=== PATIENT | male | born 1945 | race Caucasian/White ===

== ENCOUNTER 2018-08-20 12:09 | Emergency (ER) | payer OTHER ==
[2018-08-20] MEDS ORDERED: Sodium Chloride 0.9% 10 ML Syringe FLUSH PRN (12:43)
[2018-08-20] MEDS ORDERED: Ondansetron 4 MG/2 ML SDV IVPUSH ONE (12:43)
[2018-08-20] MEDS ORDERED: Sodium Chloride 0.9% 1,000 ML IV SCH (12:45)
[2018-08-20] MEDS ORDERED: Acetaminophen 325 MG Tab PO ONE (13:19)
--- NOTE | 2018-08-20 13:38 | CR ---
Chest: Portable view of the chest was obtained. Comparison: No prior chest x-ray, previous chest CT of 03/22/13. Findings: Heart size and mediastinum are normal. Lungs are clear with no acute parenchymal change. Bony structures are grossly intact. Impression: 1. Nothing acute is appreciated on portable chest x-ray. Diagnostic code #1
[2018-08-20] MEDS ORDERED: Ketorolac 15 MG/ML SDV IVPUSH ONE (14:25)
[2018-08-20] MEDS ORDERED: cefTRIAXone 2 GM in Sodium Chloride 0.9% 100 ML IV ONE ×2 (14:55→15:08)
[2018-08-20] MEDS ORDERED: cefTRIAXone 1 GM AdvVial IV ONE (15:04)
[2018-08-20] MEDS ORDERED: cefTRIAXone 2 GM AdvVial IV ONE (15:05)
--- NOTE | 2018-08-20 16:43 | EDM.PDOC ---
ED HPI GENERAL MEDICAL PROBLEM - General Chief Complaint: Fever Stated Complaint: CHILLS/SYNCOPE Time Seen by Provider: 08/20/18 12:27 Source of Information: Reports: Patient, Family History Limitations: Reports: No Limitations - History of Present Illness INITIAL COMMENTS - FREE TEXT/NARRATIVE: The patient presents with a fever, chills, and rigors. This started this morning. He was on his way back from [place] today when this started. When he arrived here, he had a fever or 103.6. He has trouble urinating and went a couple times today but there was no burning. He has a cough but he smokes and that is nothing more then normal. He had body aches. He has no headache, ear pain or sore throat. He has no chest pain or shortness of breath. He did not get his flu shot. He has no skin infections. He also vomited once. He also says he has had some black stools. He doesn't go every day. A few days ago he noticed a little black stool. Today he had more. Onset: Sudden Duration: Hour(s): Location: Reports: Generalized Quality: Reports: Ache Severity: Moderate Improves with: Reports: None Worsens with: Reports: None Associated Symptoms: Reports: Cough, Fever/Chills, Nausea/Vomiting Generalized Pain Score (Numeric/FACES): 8 - Related Data Allergies Allergy/AdvReac Type Severity Reaction Status Date / Time No Known Allergies Allergy Verified 08/20/18 12:30 Home Meds: Home Meds cephALEXin [Keflex] 500 mg PO Q8H #30 cap 08/20/18 [Rx] Past Medical History HEENT History: Reports: Hard of Hearing, Impaired Vision Cardiovascular History: Reports: High Cholesterol Gastrointestinal History: Reports: Diverticulosis, Hiatal Hernia Genitourinary History: Reports: Prostate Disorder - Infectious Disease History Infectious Disease History: Reports: Chicken Pox, Shingles - Past Surgical History GI Surgical History: Reports: Appendectomy, Hernia Repair/Other Other Musculoskeletal Surgeries/Procedures:: Tail bone removal Social & Family History - Family History Family Medical History: Noncontributory - Tobacco Use Smoking Status *Q: Current Every Day Smoker Years of Tobacco use: 62 Packs/Tins Daily: 0 - Alcohol Use Days Per Week of Alcohol Use: 7 Number of Drinks Per Day: 3 Total Drinks Per Week: 21 - Recreational Drug Use Recreational Drug Use: No ED ROS GENERAL - Review of Systems Review Of Systems: See Below Constitutional: Reports: Fever, Chills HEENT: Reports: No Symptoms Respiratory: Reports: Cough. Denies: Shortness of Breath Cardiovascular: Reports: No Symptoms Endocrine: Reports: No Symptoms GI/Abdominal: Reports: No Symptoms : Reports: No Symptoms ED EXAM, SEPSIS - Physical Exam Exam: See Below Exam Limited By: No Limitations General Appearance: Alert, No Apparent Distress Ears: Normal External Exam Nose: Normal Inspection Head: Atraumatic, Normocephalic Neck: Normal Inspection, Supple, Non-Tender Respiratory/Chest: No Respiratory Distress, Lungs Clear, Normal Breath Sounds Cardiovascular: Regular Rate, Rhythm, No Edema, No Murmur GI/Abdominal Exam: Soft, Non-Tender, No Organomegaly, No Mass Back: Normal Inspection Extremities: Normal Inspection Course - Vital Signs Last Recorded V/S: Last Vital Signs Temp 99.6 F 08/20/18 14:40 Pulse 78 08/20/18 17:00 Resp 16 08/20/18 17:00 BP 81/56 L 08/20/18 17:00 Pulse Ox 94 L 08/20/18 17:00 - Orders/Labs/Meds Orders: Active Orders 24 hr Category Date Time Status Cardiac Monitoring [RC] . DIRECTED Care 08/20/18 12:43 Active Oxygen Therapy [RC] PRN Care 08/20/18 12:43 Active Peripheral IV Care [RC] . DIRECTED Care 08/20/18 12:44 Active CULTURE BLOOD [BC] Stat Lab 08/20/18 15:28 Received CULTURE BLOOD [BC] Stat Lab 08/20/18 15:35 Received Sodium Chloride 0.9% [Normal Saline] 1,000 ml Med 08/20/18 12:45 Active IV .BOLUS Sodium Chloride 0.9% [Saline Flush] Med 08/20/18 12:43 Active 10 ml FLUSH ASDIRECTED PRN Blood Culture x2 Reflex Set [OM.PC] Stat Oth 08/20/18 14:54 Ordered ED Antiemetic Medication Reflex [OM.PC] Stat Oth 08/20/18 12:44 Ordered Peripheral IV Insertion Adult [OM.PC] Stat Oth 08/20/18 12:43 Ordered Medication Orders Sodium Chloride (Normal Saline) 1,000 mls @ 1,000 mls/hr IV .BOLUS CATRACHITO Last Admin: 08/20/18 13:08 Dose: 1,000 mls/hr Sodium Chloride (Saline Flush) 10 ml FLUSH ASDIRECTED PRN PRN Reason: Keep Vein Open Last Admin: 08/20/18 13:09 Dose: 10 ml Labs: Laboratory Tests 08/20/18 08/20/18 08/20/18 Range/Units 13:14 13:14 14:35 WBC 20.21 H (4.23-9.07) K/mm3 RBC 5.21 (4.63-6.08) M/mm3 Hgb 15.0 (13.7-17.5) gm/L Hct 45.6 (40.1-51.0) % MCV 87.5 (79.0-92.2) fl MCH 28.8 (25.7-32.2) pg MCHC 32.9 (32.2-35.5) g/dl RDW Std Deviation 46.8 H (35.1-43.9) fL Plt Count 232 (163-337) K/mm3 MPV 10.3 (9.4-12.3) fl Neut % (Auto) 88.8 H (34.0-67.9) % Lymph % (Auto) 2.5 L (21.8-53.1) % [place] % (Auto) 8.1 (5.3-12.2) % Eos % (Auto) 0.1 L (0.8-7.0) Baso % (Auto) 0.2 (0.1-1.2) % Neut # (Auto) 17.94 H (1.78-5.38) K/mm3 Lymph # (Auto) 0.50 L (1.32-3.57) K/mm3 [place] # (Auto) 1.63 H (0.30-0.82) K/mm3 Eos # (Auto) 0.03 L (0.04-0.54) K/mm3 Baso # (Auto) 0.04 (0.01-0.08) K/mm3 Manual Slide Review Abnormal smear Sodium 138 (136-145) mEq/L Potassium 3.9 (3.5-5.1) mEq/L Chloride 104 (98-107) mEq/L Carbon Dioxide 25 (21-32) mEq/L Anion Gap 12.9 (5-15) BUN 15 (7-18) mg/dL Creatinine 1.1 (0.7-1.3) mg/dL Est Cr Clr Drug Dosing 63.69 mL/min Estimated GFR (MDRD) > 60 (>60) mL/min BUN/Creatinine Ratio 13.6 L (14-18) Glucose 103 (83-115) mg/dL Lactic Acid (0.4-2.0) mmol/L Calcium 9.3 (8.5-10.1) mg/dL Total Bilirubin 0.7 (0.2-1.0) mg/dL AST 18 (15-37) U/L ALT 28 (16-63) U/L Alkaline Phosphatase 57 (46-116) U/L Total Protein 6.9 (6.4-8.2) g/dl Albumin 3.2 L (3.4-5.0) g/dl Globulin 3.7 gm/dL Albumin/Globulin Ratio 0.9 L (1-2) Urine Color Yellow (Yellow) Urine Appearance Clear (Clear) Urine pH 7.0 (5.0-8.0) Ur Specific [place] 1.020 (1.005-1.030) Urine Protein 1+ H (Negative) Urine Glucose (UA) Negative (Negative) Urine Ketones Negative (Negative) Urine Occult Blood Negative (Negative) Urine Nitrite Negative (Negative) Urine Bilirubin Negative (Negative) Urine Urobilinogen 0.2 (0.2-1.0) Ur Leukocyte Esterase Negative (Negative) Urine RBC 0-5 (0-5) /hpf Urine WBC 0-5 (0-5) /hpf Ur Epithelial Cells 0-5 (0-5) /hpf Urine Bacteria Rare (FEW) /hpf Urine Mucus Not seen (FEW) /hpf 08/20/18 Range/Units 15:28 WBC (4.23-9.07) K/mm3 RBC (4.63-6.08) M/mm3 Hgb (13.7-17.5) gm/L Hct (40.1-51.0) % MCV (79.0-92.2) fl MCH (25.7-32.2) pg MCHC (32.2-35.5) g/dl RDW Std Deviation (35.1-43.9) fL Plt Count (163-337) K/mm3 MPV (9.4-12.3) fl Neut % (Auto) (34.0-67.9) % Lymph % (Auto) (21.8-53.1) % [place] % (Auto) (5.3-12.2) % Eos % (Auto) (0.8-7.0) Baso % (Auto) (0.1-1.2) % Neut # (Auto) (1.78-5.38) K/mm3 Lymph # (Auto) (1.32-3.57) K/mm3 [place] # (Auto) (0.30-0.82) K/mm3 Eos # (Auto) (0.04-0.54) K/mm3 Baso # (Auto) (0.01-0.08) K/mm3 Manual Slide Review Sodium (136-145) mEq/L Potassium (3.5-5.1) mEq/L Chloride (98-107) mEq/L Carbon Dioxide (21-32) mEq/L Anion Gap (5-15) BUN (7-18) mg/dL Creatinine (0.7-1.3) mg/dL Est Cr Clr Drug Dosing mL/min Estimated GFR (MDRD) (>60) mL/min BUN/Creatinine Ratio (14-18) Glucose (83-115) mg/dL Lactic Acid 0.8 (0.4-2.0) mmol/L Calcium (8.5-10.1) mg/dL Total Bilirubin (0.2-1.0) mg/dL AST (15-37) U/L ALT (16-63) U/L Alkaline Phosphatase (46-116) U/L Total Protein (6.4-8.2) g/dl Albumin (3.4-5.0) g/dl Globulin gm/dL Albumin/Globulin Ratio (1-2) Urine Color (Yellow) Urine Appearance (Clear) Urine pH (5.0-8.0) Ur Specific [place] (1.005-1.030) Urine Protein (Negative) Urine Glucose (UA) (Negative) Urine Ketones (Negative) Urine Occult Blood (Negative) Urine Nitrite (Negative) Urine Bilirubin (Negative) Urine Urobilinogen (0.2-1.0) Ur Leukocyte Esterase (Negative) Urine RBC (0-5) /hpf Urine WBC (0-5) /hpf Ur Epithelial Cells (0-5) /hpf Urine Bacteria (FEW) /hpf Urine Mucus (FEW) /hpf Meds: Medications Generic Name Dose Route Start Last Admin Trade Name [place] PRN Reason Stop Dose Admin Sodium Chloride 1,000 mls @ 1,000 mls/hr 08/20/18 12:45 08/20/18 13:08 Normal Saline IV 1,000 mls/hr .BOLUS CATRACHITO Administration Sodium Chloride 10 ml 08/20/18 12:43 08/20/18 13:09 Saline Flush FLUSH 10 ml ASDIRECTED PRN Administration Keep Vein Open Discontinued Medications Generic Name Dose Route Start Last Admin Trade Name Freq PRN Reason Stop Dose Admin Acetaminophen 975 mg 08/20/18 13:19 08/20/18 13:25 Tylenol PO 08/20/18 13:20 975 mg NOW ONE Administration Ceftriaxone Sodium Confirm 08/20/18 15:04 08/20/18 15:12 Rocephin Administered 08/20/18 15:05 Not Given Dose 2 gm IV .STK-MED ONE Ceftriaxone Sodium Confirm 08/20/18 15:05 08/20/18 15:13 Rocephin Administered 08/20/18 15:06 Not Given Dose 2 gm IV .STK-MED ONE Ceftriaxone Sodium 2 gm/ 100 mls @ 200 mls/hr 08/20/18 14:55 08/20/18 15:41 Sodium Chloride IV 08/20/18 15:24 Not Given ONETIME ONE Ceftriaxone Sodium 2 gm/ 100 mls @ 200 mls/hr 08/20/18 15:08 08/20/18 15:40 Sodium Chloride IV 08/20/18 15:24 200 mls/hr ONETIME ONE Administration Ketorolac Tromethamine 15 mg 08/20/18 14:25 08/20/18 14:38 Toradol IVPUSH 08/20/18 14:26 15 mg ONETIME ONE Administration Ondansetron HCl 4 mg 08/20/18 12:43 08/20/18 13:04 Zofran IVPUSH 08/20/18 12:44 4 mg ONETIME ONE Administration - Re-Assessments/Exams Free Text/Narrative Re-Assessment/Exam: 08/20/18 17:54 I ordered an IV NS 1L bolus, zofran 4mg IV, tylenol 975mg by mouth, labs, UA, CXR and influenza. I was suspecting influenza but that was negative. His WBC was elevated at 20.21. His CMP looks good. His UA shows no UTI. With his high WBC I am worried about a bactaremia. I got blood cultures and I gave him rocephin 2 grams IV. He feels better and would like to go home. I have ordered keflex until the cultures return. Departure - Departure Time of Disposition: 17:00 Disposition: Home, Self-Care 01 Condition: Good Clinical Impression: Fever and chills Elevated WBC count Qualifiers: Leukocytosis type: unspecified Qualified Code(s): D72.829 - Elevated white blood cell count, unspecified - Discharge Information *PRESCRIPTION DRUG MONITORING PROGRAM REVIEWED*: No *COPY OF PRESCRIPTION DRUG MONITORING REPORT IN PATIENT AUGIE: No Prescriptions: cephALEXin [Keflex] 500 mg PO Q8H #30 cap Instructions: Fever, Adult, [id number] Referrals: Lisa Connors MD [Primary Care Provider] - 1 Week Forms: ED Department Discharge Additional Instructions: Take the keflex 3 times per day for 10 days. Take motrin or tylenol for pain and fever. Drink plenty of fluids. Please return if you are worse. - My Orders Last 24 Hours: My Active Orders 08/20/18 12:43 Cardiac Monitoring [RC] . DIRECTED Oxygen Therapy [RC] PRN Sodium Chloride 0.9% [Saline Flush] 10 ml FLUSH ASDIRECTED PRN Peripheral IV Insertion Adult [OM.PC] Stat 08/20/18 12:44 Peripheral IV Care [RC] . DIRECTED ED Antiemetic Medication Reflex [OM.PC] Stat 08/20/18 12:45 Sodium Chloride 0.9% [Normal Saline] 1,000 ml IV .BOLUS 08/20/18 14:54 Blood Culture x2 Reflex Set [OM.PC] Stat 08/20/18 15:28 CULTURE BLOOD [BC] Stat 08/20/18 15:35 CULTURE BLOOD [BC] Stat - Assessment/Plan Last 24 Hours: My Active Orders 08/20/18 12:43 Cardiac Monitoring [RC] . DIRECTED Oxygen Therapy [RC] PRN Sodium Chloride 0.9% [Saline Flush] 10 ml FLUSH ASDIRECTED PRN Peripheral IV Insertion Adult [OM.PC] Stat 08/20/18 12:44 Peripheral IV Care [RC] . DIRECTED ED Antiemetic Medication Reflex [OM.PC] Stat 08/20/18 12:45 Sodium Chloride 0.9% [Normal Saline] 1,000 ml IV .BOLUS 08/20/18 14:54 Blood Culture x2 Reflex Set [OM.PC] Stat 08/20/18 15:28 CULTURE BLOOD [BC] Stat 08/20/18 15:35 CULTURE BLOOD [BC] Stat
== END 2018-08-20 17:23 | disposition home or self-care (01) ==
LOC: JD.ED 12:09
DX: D72.829 Elevated white blood cell count, unspecified (principal); F17.210 Nicotine dependence, cigarettes, uncomplicated
CPT/HCPCS: 36415; 71045; 80053; 81001; 83605; 85025; 87040; 87804; 96361; 96365; 96375; 99284; A9270; J0696; J1885; J2405; J7030; J7040